=== PATIENT | male | born 1980 | race African-American/Black ===

== ENCOUNTER 2023-01-01 13:59 | Emergency (ER) | payer SELFPAY | END 2023-01-01 15:00 | LOC: MW.ED 13:59 | DX: I10 Essential (primary) hypertension (principal); F17.210 Nicotine dependence, cigarettes, uncomplicated | CPT/HCPCS: 99283 ==

== ENCOUNTER 2023-11-05 12:12 | Emergency (ER) | payer SELFPAY | END 2023-11-05 13:08 | disposition home or self-care (01) | LOC: MW.ED 12:12 | DX: I10 Essential (primary) hypertension (principal); Z76.0 Encounter for issue of repeat prescription | CPT/HCPCS: 99283 ==